=== PATIENT | female | born 1945 | race Caucasian/White ===

== ENCOUNTER 2024-11-16 17:39 | Inpatient (IN) | payer MEDICARE, SELFPAY ==
--- NOTE | ~2024-11-16 | CT_ITS ---
EXAMINATION: CT abdomen pelvis w con DATE: 11/16/2024 20:24 INDICATION: diffuse abd pain, constipation TECHNIQUE: Computed tomography (CT) of the abdomen and pelvis was performed with 100 mL Omnipaque-350 intravenous contrast. Automated exposure control and iterative reconstruction technique were employe d. The dose-length product was 394.29 mGy-cm. COMPARISON: None. FINDINGS: Lower thorax: Mild dependent scar/atelectasis. Coronary artery calcifications. Liver: Normal. Biliary/Gallbladder: Gallbladder is absent. Mildly prominent intrahepatic bile ducts. Normal common b ile duct. Pancreas: Multiple subcentimeter cysts in the pancreatic head and body, in addition to multiple small fat density areas which may represent small lipomas or fatty invagination. Spleen: Normal. Adrenals:Hyperdense 3.7 cm right adrenal mass. Additional smaller subcentimeter bilateral adrenal nod ules are also noted. Kidneys: 1.0 cm indeterminate density left upper pole lesion. Simple left lower pole cyst. Multiple a dditional subcentimeter hypodensities bilaterally, too small to characterize but most likely represen t cysts.. GI tract: No small or large bowel dilation. Bowel wall edema involving the distal portion of the desc ending colon and the entire sigmoid colon. Appendix not confidently visualized. Diverticulosis withou t diverticulitis. Mesentery/Peritoneum: No ascites, mass, or free air. Retroperitoneum: No mass. Atherosclerotic calcifications of intra-abdominal arterial vessels. Pelvis: Distended urinary bladder without wall thickening. Absent uterus. Bilateral ovaries not confi dently identified. Soft Tissues: Small fat-containing uncomplicated umbilical hernia. Bones: Mild compression deformity at T11. IMPRESSION: Mild intrahepatic bile duct dilation, presumably related to cholecystectomy. No common bile duct dila tion or obstructing stone or mass. Correlate with biliary labs. 3.7 cm right adrenal mass, with multiple additional smaller bilateral adrenal nodules. 1 cm indetermi sneha density left upper pole renal lesion. Multiple subcentimeter pancreatic cysts. Recommend compari son to outside studies if available to evaluate all of these lesions for stability. Otherwise, recomm end nonemergent but timely multiphasic CT or MR without and with contrast. Distal descending colonic and sigmoid colon wall edema as can be seen with infectious, inflammatory, or ischemic colitis. Mild compression deformity at T11, presumed chronic unless accompanied by acute pain/tenderness. Reviewed, dictated and finalized at location K. IMPRESSION: Mild intrahepatic bile duct dilation, presumably related to cholecystectomy. No common bile duct dilation or obstructing stone or mass. Correlate with biliary labs. 3.7 cm right adrenal mass, with multiple additional smaller bilateral adrenal n odules. 1 cm indeterminate density left upper pole renal lesion. Multiple subce ntimeter pancreatic cysts. Recommend comparison to outside studies if available to evaluate all of these lesions for stability. Otherwise, recommend nonemerge nt but timely multiphasic CT or MR without and with contrast. Distal descending colonic and sigmoid colon wall edema as can be seen with infe ctious, inflammatory, or ischemic colitis. Mild compression deformity at T11, presumed chronic unless accompanied by acute pain/tenderness.
[2024-11-16 17:47] VITALS: BP 150/115; PULSE 98; RESP 22; TEMP 36.6; O2SAT 100
[2024-11-16 18:20] VITALS: BP 160/72; PULSE 79; RESP 15; O2SAT 100
[2024-11-16 18:20] LABS: Glucose Point of Care 267 mg/dl (65-105)
[2024-11-16] MEDS: ONDANSETRON INJ 4 MG/2 ML VIAL IV PUSH ×2 (18:26→23:00)
[2024-11-16 18:30] LABS: Basophils Percent Auto 0.1 % (0.2-1.2); Hematocrit 41.7 % (37.0-47.0); Hemoglobin 13.7 g/dL (12.0-15.0); Immature Granulocyte Absolute 0.05 K/mm3 (0.00-0.031); Immature Granulocyte Percent A 0.3 % (0-0.5); Lymphocytes Absolute Auto 1.37 K/mm3 (0.9-3.2); Lymphocytes Percent Auto 9.1 % (18.3-44.2); Mean Corpuscular HGB Conc 32.9 g/dl (32-36); Mean Corpuscular Hemoglobin 30.2 pg (26-34); Mean Corpuscular Volume 91.9 fl (80-100); Mean Platelet Volume 9.4 fl (7.4-10.4); Monocytes Absolute Auto 0.2 K/mm3 (0.1-0.6); Monocytes Percent Auto 1.6 % (2.6-8.5); Neutrophils Absolute Auto 13.4 K/mm3 (1.3-6.7); Neutrophils Percent Auto 88.9 % (45.5-73.1); Platelet Count Result 364 k/mm3 (150-375); Red Blood Count 4.54 M/mm3 (4.2-5.4); Red Cell Distribution Width 12.7 % (11.5-14.5); White Blood Count 15.1 K/mm3 (4.5-10.0)
[2024-11-16 18:39] LABS: Lactic Acid Reflex 3.1 mmol/L (0.7-2.0)
[2024-11-16 18:40] LABS: Alanine Aminotransferase 28 U/L (6-35); Albumin Level 4.9 g/dL (3.5-5.1); Alkaline Phosphatase 75 U/L (38-126); Anion Gap 13 mmol/L (4-12); Aspartate Amino Transferase 29 U/L (14-36); Bilirubin,Total 0.5 mg/dL (0.2-1.3); Blood Urea Nitrogen 19 mg/dL (7-17); Calcium 10.7 mg/dL (8.4-10.2); Carbon Dioxide 21 mmol/L (22-30); Chloride 102 mmol/L (98-107); Estimated CRCL calculation 34 ml/min; Estimated Glomerular Filt Rate 51; Glucose 275 mg/dL (65-110); Lipase 160 U/L (23-300); Potassium 4.3 mmol/L (3.4-5.0); Sodium 136 mmol/L (137-145); Total Protein 7.5 g/dL (6.3-8.2)
[2024-11-16 18:46] VITALS: BP 149/67; PULSE 85; RESP 16; O2SAT 97
[2024-11-16 19:01] VITALS: BP 163/66; PULSE 80; RESP 15
[2024-11-16 19:16] VITALS: BP 121/109; PULSE 74; RESP 24; O2SAT 97
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
[2024-11-16] MEDS: FAMOTIDINE 20 MG/2 ML VIAL IV PUSH (20:26)
[2024-11-16] MEDS: MORPHINE SULFATE (*CRX) 2 MG/ML INJ IV PUSH (20:26)
[2024-11-16] MEDS: METOCLOPRAMIDE HCL INJ 10 MG/2 ML VIAL IV PUSH (20:26)
[2024-11-16 20:28] LABS: Reflex Lactic Acid Yes or No Add Lactic
[2024-11-16] MEDS: LACTATED RINGERS 1,000 ML 999 ML IV CONT ×2 (20:33→21:34)
--- NOTE | 2024-11-16 20:40 | ED.NAVMDI ---
HPI - Nausea/Vomiting/Diarrhea General Chief complaint: Nausea/Vomiting/Diarrhea <Eva Adams PA-C - Last Filed: 11/16/24 22:23> Stated complaint: n/v <Eva Adams PA-C - Last Filed: 11/16/24 22:23> Time Seen by Provider: 11/16/24 19:45 <Eva Adams PA-C - Last Filed: 11/16/24 22:23> History of Present Illness HPI Narrative: 79-year-old female with a history of hypertension, hyperlipidemia, type 2 diabetes, seizure disorder presents to the emergency department with at bedside for abdominal pain and nausea and vomiting that started this morning. Patient states she has been constipated for several days. She has been taking Dulcolax and had a bowel movement this morning. She states the bowel movement was firm. Shortly after the bowel movement she began developing diffuse abdominal pain, nausea and has had 3 episodes of vomiting. She states she did have a small amount of blood on the toilet paper when she wipes but does have a history of hemorrhoids and states this is not uncommon for her. She did not have any blood in the toilet denies any melena, hematemesis or coffee-ground emesis. She endorses a prior history of cholecystectomy and hysterectomy. She is endorsing decreased flatulence. Denies history of bowel obstruction. Denies fever, dysuria or hematuria. <Eva Adams PA-C - Last Filed: 11/16/24 22:23> Related Data Home medications: Home Medications ?Medication ?Instructions ?Recorded ?Confirmed ?Last Taken ?Type amlodipine 5 mg tablet 5 mg PO DAILY 11/16/24 11/17/24 Unknown History fluoxetine 20 mg capsule 20 mg PO QPM 11/16/24 11/17/24 Unknown History glimepiride 4 mg tablet 4 mg PO QAM 11/16/24 11/17/24 Unknown History lamotrigine 25 mg tablet 50 mg PO Q12H 11/16/24 11/17/24 Unknown History levetiracetam 500 mg tablet 1,000 mg PO Q12H 11/16/24 11/17/24 11/16/24 08:06 History lisinopril 20 mg tablet 20 mg PO DAILY 11/16/24 11/17/24 Unknown History rosuvastatin 10 mg tablet 10 mg PO HS 11/16/24 11/17/24 Unknown History trazodone 50 mg tablet 50 mg PO HS 11/16/24 11/17/24 Unknown History semaglutide 0.25 mg or 0.5 mg (2 0.5 mg subcut WEEKLY 11/17/24 11/17/24 11/10/24 History mg/3 mL) subcutaneous pen injector (Ozempic) <Eva Adams PA-C - Last Filed: 11/16/24 22:23> Allergies/Adverse reactions: Allergies Allergy/AdvReac Type Severity Reaction Status Date / Time No Known Allergies Allergy Verified 11/16/24 19:07 <CHANA Martin Last Filed: 11/16/24 22:23> Review of Systems Review of Systems: All systems reviewed & are unremarkable except as noted in HPI and below <Eva Adams PA-C - Last Filed: 11/16/24 22:23> [facility] Past Medical History Medical History: Medical History (Updated 11/17/24 @ 04:17 by Radha Lemus DO) Absence seizure disorder Obstructive sleep apnea Umbilical hernia 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 Compression fracture of T11 vertebra Depression Hyperlipidemia Essential hypertension Type 2 diabetes mellitus <Eva Adams PA-C - Last Filed: 11/16/24 22:23> Surgical History Surgical History: Surgical History (Updated 11/17/24 @ 04:01 by Radha Lemus DO) History of partial thyroidectomy Due to goiter Status post cataract extraction of both eyes with insertion of intraocular lens History of total abdominal hysterectomy and bilateral salpingo-oophorectomy Hx of cholecystectomy <CHANA Martin Last Filed: 11/16/24 22:23> Family History Family History: Family History (Updated 11/17/24 @ 04:02 by Radha Lemus DO) Daughter , Age 48 History of blood clots <Eva Adams PA-C - Last Filed: 11/16/24 22:23> Social History Social History: Social History (Updated 11/17/24 @ 04:04 by Radha Lemus DO) Social History: Patient is . She lives alone in her own home. She is independent in activities of daily living. She is a lifelong nonsmoker and does not drink alcohol or use illicit substances. 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 She raised 3 children. She has 1 son who lives out of state but is currently at the bedside. And she has 1 daughter who lives locally. Code status: Full code (however she would not want to be on long-term ventilation or feeding tube) Healthcare power of deputy attorney general: Liliana (daughter) Smoking status: Never smoker Alcohol intake: never Substance use: never Substance use type: does not use Do You Feel Safe in your Home?: Yes Lack of Transportation: No Lack of Food: Never True Current Housing: I Have Housing Concerned About Future Housing: No Difficulty Paying Gas/Electric Bills: No Difficulty Paying for Meds: No Currently Unemployed: No Education: High School Diploma/GED Difficulty w/ Childcare or Family Care: No Spiritual care concerns: No <Eva Adams PA-C - Last Filed: 11/16/24 22:23> Exam Narrative: GENERAL: Ill appearing, actively dry heaving on exam HEAD: Normocephalic, atraumatic. EYES: EOMI. ENT: Nares clear, no rhinorrhea or epistaxis. Mucous membranes dry NECK: Supple. CHEST: Clear to auscultation. No respiratory distress. HEART: Regular rate and rhythm. No murmur heard. Normal peripheral pulses. ABDOMEN: Quiet bowel sounds. Abdomen soft with diffuse tenderness. No rebound or rigidity. No CVA tenderness. Rectal exam chaperoned by fany Hernandez: no external hemorrhoids, no anal fissures, no melena or hematochezia, negative Hemoccult EXTREMITIES: Normal range of motion. No edema. SKIN: Warm, dry, no rash. NEURO: No focal deficits. Alert and oriented x3 <Eva Adams PA-C - Last Filed: 11/16/24 22:23> Course VIRTUALIZATION ENGINEER/PA Physician Supervision For this patient encounter, I reviewed the VIRTUALIZATION ENGINEER or PA documentation, treatment plan, and medical decision making and had [id number] time with this patient. I performed all aspects of the MDM as documented. <Prakash Andino MD - Last Filed: 11/17/24 05:33> Vital Signs Vital signs: Vital Signs Temperature 97.8 F 11/16/24 17:47 Pulse Rate 98 11/16/24 17:47 Respiratory Rate 22 H 11/16/24 17:47 Blood Pressure 150/115 H 11/16/24 17:47 Pulse Oximetry 100 11/16/24 17:47 Oxygen Delivery Room Air 11/16/24 17:47 Temperature 97.2 F L 11/17/24 04:44 Pulse Rate 75 11/17/24 04:44 Respiratory Rate 20 11/17/24 04:44 Blood Pressure 124/51 L 11/17/24 04:44 Pulse Oximetry 95 11/17/24 04:44 Oxygen Delivery Room Air 11/16/24 23:16 <Eva Adams PA-C - Last Filed: 11/16/24 22:23> Vital Signs Temperature 97.8 F 11/16/24 17:47 Pulse Rate 98 11/16/24 17:47 Respiratory Rate 22 H 11/16/24 17:47 Blood Pressure 150/115 H 11/16/24 17:47 Pulse Oximetry 100 11/16/24 17:47 Oxygen Delivery Room Air 11/16/24 17:47 Temperature 97.2 F L 11/17/24 04:44 Pulse Rate 75 11/17/24 04:44 Respiratory Rate 20 11/17/24 04:44 Blood Pressure 124/51 L 11/17/24 04:44 Pulse Oximetry 95 11/17/24 04:44 Oxygen Delivery Room Air 11/16/24 23:16 <Prakash Andino MD - Last Filed: 11/17/24 05:33> MDM - Nausea/Vomiting/Diarrhea MDM Narrative Medical decision making narrative: 79-year-old female presents to emergency department for abdominal pain, nausea and vomiting that started today. See HPI for further history. Vitals with elevated blood pressure, otherwise unremarkable. Patient is afebrile. She appears uncomfortable on the exam bed, ill-appearing is dry heaving. Exam is notable for the above. Lab work with leukocytosis of 15.1. Patient has signs of dehydration on chemistries with a bicarb of 21, anion gap of 13, BUN 19, creatinine 1.04 and hypercalcemia 10.7. Fluids have been provided. She is hyperglycemic at 267, beta hydroxybutyrate minimally elevated at 1.06. Very low suspicion for DKA, suspect lab work again is most consistent with dehydration. Urinalysis with 6-10 white blood cells 1+ leuk esterase, 2+ ketones. Denies signs or symptoms of urinary tract infection. Lipase within normal limits. CT abd/pelvis shows IMPRESSION: Mild intrahepatic bile duct dilation, presumably related to cholecystectomy. No common bile duct dilation or obstructing stone or mass. Correlate with biliary labs. 3.7 cm right adrenal mass, with multiple additional smaller bilateral adrenal nodules. 1 cm indeterminate density left upper pole renal lesion. Multiple subcentimeter pancreatic cysts. Recommend comparison to outside studies if available to evaluate all of these lesions for stability. Otherwise, recommend nonemergent but timely multiphasic CT or MR without and with contrast. Distal descending colonic and sigmoid colon wall edema as can be seen with infectious, inflammatory, or ischemic colitis. Mild compression deformity at T11, presumed chronic unless accompanied by acute pain/tenderness Labs and imaging discussed with the patient. Patient has normal biliary labs in no significant tenderness to the right upper quadrant on reexamination. She does have an elevated lactic acid at 3.1 was given a L of fluids. Lactic rechecked and is up trending to 4. A 2nd L of fluids are ongoing. Discussed uptrending lactic acid and findings of colitis with concern for ischemic colitis with Dr. Garay. Advises continue fluids, make patient NPO, trend lactic and start Zosyn. Advises against CTA at this time. Patient re-evaluated and looks much improved and is resting comfortably in exam bed. Discussed with hospitalist, Dr. Lemus, who agrees to admission. Advises maintenance fluids at 125 cc/hour and p.r.n. pain meds. Patient admitted to Med/surg. <Eva Adams PA-C - Last Filed: 11/16/24 22:23> Lab Data Result diagrams: 11/17/24 04:36 11/17/24 04:36 <Eva Adams PA-C - Last Filed: 11/16/24 22:23> Labs: Lab Results 11/16/24 11/16/24 11/16/24 Range/Units 18:17 18:22 18:25 WBC 15.1 H (4.5-10.0) K/mm3 RBC 4.54 (4.2-5.4) M/mm3 Hgb 13.7 (12.0-15.0) g/dL Hct 41.7 (37.0-47.0) % MCV 91.9 (80-100) fl MCH 30.2 (26-34) pg MCHC 32.9 (32-36) g/dl RDW 12.7 (11.5-14.5) % Plt Count 364 (150-375) k/mm3 MPV 9.4 (7.4-10.4) fl Immature Gran % (Auto) 0.3 (0-0.5) % Neut % (Auto) 88.9 H (45.5-73.1) % Lymph % (Auto) 9.1 L (18.3-44.2) % Forrest % (Auto) 1.6 L (2.6-8.5) % Eos % (Auto) 0.0 (0-4.4) % Baso % (Auto) 0.1 L (0.2-1.2) % Lymph # (Auto) 1.37 (0.9-3.2) K/mm3 Forrest # (Auto) 0.2 (0.1-0.6) K/mm3 Eos # (Auto) 0.0 (0-0.3) K/mm3 Baso # (Auto) 0.0 (0.0-0.1) K/mm3 Abs Immat Gran (auto) 0.05 H (0.00-0.031) K/mm3 Absolute Neuts (auto) 13.4 H (1.3-6.7) K/mm3 Absolute Nucleated RBC 0.000 (0.0-0.012) K/mm3 Nucleated RBC % 0.0 (0.0-0.2) % PT 13.8 (11.1-14.7) Seconds INR 1.0 APTT 25.8 (22.3-36.8) Seconds Sodium 136 L (137-145) mmol/L Potassium 4.3 (3.4-5.0) mmol/L Chloride 102 (98-107) mmol/L Carbon Dioxide 21 L (22-30) mmol/L Anion Gap 13 H (4-12) mmol/L BUN 19 H (7-17) mg/dL Creatinine 1.04 H (0.7-1.0) mg/dL Estim Creat Clear Calc 34 ml/min Estimated GFR 51 L (59 - ) Glucose 275 H (65-110) mg/dL POC Capillary Glucose 267 H (65-105) mg/dl Lactic Acid 3.1 H (0.7-2.0) mmol/L Calcium 10.7 H (8.4-10.2) mg/dL Total Bilirubin 0.5 (0.2-1.3) mg/dL AST 29 (14-36) U/L ALT 28 (6-35) U/L Alkaline Phosphatase 75 (38-126) U/L Total Protein 7.5 (6.3-8.2) g/dL Albumin 4.9 (3.5-5.1) g/dL Lipase 160 (23-300) U/L Beta-Hydroxybutyrate/Acetoacetate 1.06 H (0.02-0.27) mmol/L Urine Color (Yellow) Urine Appearance (Clear) Urine pH (5.0-9.0) Ur Specific Marcell (1.001-1.035) Urine Protein (Negative) mg/dL Urine Glucose (UA) (Negative) mg/dL Urine Ketones (Negative) mg/dL Ur Blood (Man) (Negative) Urine Nitrate (Negative) Urine Bilirubin (Negative) Urine Urobilinogen (<2.0) mg/dL Leukocyte Esterase Rfl (Negative) SANGEETA/UL Urine RBC (0-2) /hpf Urine WBC (0-3) /hpf Ur Squamous Epith Cells (Few) /hpf Urine Bacteria /hpf Urine Casts Influenza A (RT-PCR) (Negative) Influenza B (RT-PCR) (Negative) RSV (RT-PCR) (Negative) SARS-CoV-2 RNA (RT-PCR) (Negative) 11/16/24 11/16/24 Range/Units 21:11 21:16 WBC (4.5-10.0) K/mm3 RBC (4.2-5.4) M/mm3 Hgb (12.0-15.0) g/dL Hct (37.0-47.0) % MCV (80-100) fl MCH (26-34) pg MCHC (32-36) g/dl RDW (11.5-14.5) % Plt Count (150-375) k/mm3 MPV (7.4-10.4) fl Immature Gran % (Auto) (0-0.5) % Neut % (Auto) (45.5-73.1) % Lymph % (Auto) (18.3-44.2) % Forrest % (Auto) (2.6-8.5) % Eos % (Auto) (0-4.4) % Baso % (Auto) (0.2-1.2) % Lymph # (Auto) (0.9-3.2) K/mm3 Forrest # (Auto) (0.1-0.6) K/mm3 Eos # (Auto) (0-0.3) K/mm3 Baso # (Auto) (0.0-0.1) K/mm3 Abs Immat Gran (auto) (0.00-0.031) K/mm3 Absolute Neuts (auto) (1.3-6.7) K/mm3 Absolute Nucleated RBC (0.0-0.012) K/mm3 Nucleated RBC % (0.0-0.2) % PT (11.1-14.7) Seconds INR APTT (22.3-36.8) Seconds Sodium (137-145) mmol/L Potassium (3.4-5.0) mmol/L Chloride (98-107) mmol/L Carbon Dioxide (22-30) mmol/L Anion Gap (4-12) mmol/L BUN (7-17) mg/dL Creatinine (0.7-1.0) mg/dL Estim Creat Clear Calc ml/min Estimated GFR (59 - ) Glucose (65-110) mg/dL POC Capillary Glucose (65-105) mg/dl Lactic Acid 4.0 H (0.7-2.0) mmol/L Calcium (8.4-10.2) mg/dL Total Bilirubin (0.2-1.3) mg/dL AST (14-36) U/L ALT (6-35) U/L Alkaline Phosphatase (38-126) U/L Total Protein (6.3-8.2) g/dL Albumin (3.5-5.1) g/dL Lipase (23-300) U/L Beta-Hydroxybutyrate/Acetoacetate (0.02-0.27) mmol/L Urine Color Yellow (Yellow) Urine Appearance Clear (Clear) Urine pH 8.5 (5.0-9.0) Ur Specific Marcell 1.035 (1.001-1.035) Urine Protein Negative (Negative) mg/dL Urine Glucose (UA) Trace H (Negative) mg/dL Urine Ketones 2+ H (Negative) mg/dL Ur Blood (Man) Negative (Negative) Urine Nitrate Negative (Negative) Urine Bilirubin Negative (Negative) Urine Urobilinogen 0.2 (<2.0) mg/dL Leukocyte Esterase Rfl 1+ H (Negative) SANGEETA/UL Urine RBC 0-2 (0-2) /hpf Urine WBC 6-10 H (0-3) /hpf Ur Squamous Epith Cells None seen (Few) /hpf Urine Bacteria None seen /hpf Urine Casts 0-2 Influenza A (RT-PCR) Negative (Negative) Influenza B (RT-PCR) Negative (Negative) RSV (RT-PCR) Negative (Negative) SARS-CoV-2 RNA (RT-PCR) Negative (Negative) <Eva Adams PA-C - Last Filed: 11/16/24 22:23> Lab Results 11/16/24 11/16/24 11/16/24 Range/Units 18:17 18:22 18:25 WBC 15.1 H (4.5-10.0) K/mm3 RBC 4.54 (4.2-5.4) M/mm3 Hgb 13.7 (12.0-15.0) g/dL Hct 41.7 (37.0-47.0) % MCV 91.9 (80-100) fl MCH 30.2 (26-34) pg MCHC 32.9 (32-36) g/dl RDW 12.7 (11.5-14.5) % Plt Count 364 (150-375) k/mm3 MPV 9.4 (7.4-10.4) fl Immature Gran % (Auto) 0.3 (0-0.5) % Neut % (Auto) 88.9 H (45.5-73.1) % Lymph % (Auto) 9.1 L (18.3-44.2) % Forrest % (Auto) 1.6 L (2.6-8.5) % Eos % (Auto) 0.0 (0-4.4) % Baso % (Auto) 0.1 L (0.2-1.2) % Lymph # (Auto) 1.37 (0.9-3.2) K/mm3 Forrest # (Auto) 0.2 (0.1-0.6) K/mm3 Eos # (Auto) 0.0 (0-0.3) K/mm3 Baso # (Auto) 0.0 (0.0-0.1) K/mm3 Abs Immat Gran (auto) 0.05 H (0.00-0.031) K/mm3 Absolute Neuts (auto) 13.4 H (1.3-6.7) K/mm3 Absolute Nucleated RBC 0.000 (0.0-0.012) K/mm3 Nucleated RBC % 0.0 (0.0-0.2) % PT 13.8 (11.1-14.7) Seconds INR 1.0 APTT 25.8 (22.3-36.8) Seconds Sodium 136 L (137-145) mmol/L Potassium 4.3 (3.4-5.0) mmol/L Chloride 102 (98-107) mmol/L Carbon Dioxide 21 L (22-30) mmol/L Anion Gap 13 H (4-12) mmol/L BUN 19 H (7-17) mg/dL Creatinine 1.04 H (0.7-1.0) mg/dL Estim Creat Clear Calc 34 ml/min Estimated GFR 51 L (59 - ) Glucose 275 H (65-110) mg/dL POC Capillary Glucose 267 H (65-105) mg/dl Lactic Acid 3.1 H (0.7-2.0) mmol/L Calcium 10.7 H (8.4-10.2) mg/dL Total Bilirubin 0.5 (0.2-1.3) mg/dL AST 29 (14-36) U/L ALT 28 (6-35) U/L Alkaline Phosphatase 75 (38-126) U/L Total Protein 7.5 (6.3-8.2) g/dL Albumin 4.9 (3.5-5.1) g/dL Lipase 160 (23-300) U/L Beta-Hydroxybutyrate/Acetoacetate 1.06 H (0.02-0.27) mmol/L Urine Color (Yellow) Urine Appearance (Clear) Urine pH (5.0-9.0) Ur Specific Marcell (1.001-1.035) Urine Protein (Negative) mg/dL Urine Glucose (UA) (Negative) mg/dL Urine Ketones (Negative) mg/dL Ur Blood (Man) (Negative) Urine Nitrate (Negative) Urine Bilirubin (Negative) Urine Urobilinogen (<2.0) mg/dL Leukocyte Esterase Rfl (Negative) SANGEETA/UL Urine RBC (0-2) /hpf Urine WBC (0-3) /hpf Ur Squamous Epith Cells (Few) /hpf Urine Bacteria /hpf Urine Casts Influenza A (RT-PCR) (Negative) Influenza B (RT-PCR) (Negative) RSV (RT-PCR) (Negative) SARS-CoV-2 RNA (RT-PCR) (Negative) 11/16/24 11/16/24 Range/Units 21:11 21:16 WBC (4.5-10.0) K/mm3 RBC (4.2-5.4) M/mm3 Hgb (12.0-15.0) g/dL Hct (37.0-47.0) % MCV (80-100) fl MCH (26-34) pg MCHC (32-36) g/dl RDW (11.5-14.5) % Plt Count (150-375) k/mm3 MPV (7.4-10.4) fl Immature Gran % (Auto) (0-0.5) % Neut % (Auto) (45.5-73.1) % Lymph % (Auto) (18.3-44.2) % Forrest % (Auto) (2.6-8.5) % Eos % (Auto) (0-4.4) % Baso % (Auto) (0.2-1.2) % Lymph # (Auto) (0.9-3.2) K/mm3 Forrest # (Auto) (0.1-0.6) K/mm3 Eos # (Auto) (0-0.3) K/mm3 Baso # (Auto) (0.0-0.1) K/mm3 Abs Immat Gran (auto) (0.00-0.031) K/mm3 Absolute Neuts (auto) (1.3-6.7) K/mm3 Absolute Nucleated RBC (0.0-0.012) K/mm3 Nucleated RBC % (0.0-0.2) % PT (11.1-14.7) Seconds INR APTT (22.3-36.8) Seconds Sodium (137-145) mmol/L Potassium (3.4-5.0) mmol/L Chloride (98-107) mmol/L Carbon Dioxide (22-30) mmol/L Anion Gap (4-12) mmol/L BUN (7-17) mg/dL Creatinine (0.7-1.0) mg/dL Estim Creat Clear Calc ml/min Estimated GFR (59 - ) Glucose (65-110) mg/dL POC Capillary Glucose (65-105) mg/dl Lactic Acid 4.0 H (0.7-2.0) mmol/L Calcium (8.4-10.2) mg/dL Total Bilirubin (0.2-1.3) mg/dL AST (14-36) U/L ALT (6-35) U/L Alkaline Phosphatase (38-126) U/L Total Protein (6.3-8.2) g/dL Albumin (3.5-5.1) g/dL Lipase (23-300) U/L Beta-Hydroxybutyrate/Acetoacetate (0.02-0.27) mmol/L Urine Color Yellow (Yellow) Urine Appearance Clear (Clear) Urine pH 8.5 (5.0-9.0) Ur Specific Marcell 1.035 (1.001-1.035) Urine Protein Negative (Negative) mg/dL Urine Glucose (UA) Trace H (Negative) mg/dL Urine Ketones 2+ H (Negative) mg/dL Ur Blood (Man) Negative (Negative) Urine Nitrate Negative (Negative) Urine Bilirubin Negative (Negative) Urine Urobilinogen 0.2 (<2.0) mg/dL Leukocyte Esterase Rfl 1+ H (Negative) SANGEETA/UL Urine RBC 0-2 (0-2) /hpf Urine WBC 6-10 H (0-3) /hpf Ur Squamous Epith Cells None seen (Few) /hpf Urine Bacteria None seen /hpf Urine Casts 0-2 Influenza A (RT-PCR) Negative (Negative) Influenza B (RT-PCR) Negative (Negative) RSV (RT-PCR) Negative (Negative) SARS-CoV-2 RNA (RT-PCR) Negative (Negative) <Prakash Andino MD - Last Filed: 11/17/24 05:33> Discharge Plan Discharge Clinical Impression: Colitis, Dehydration, Elevated lactic acid level <Eva Adams PA-C - Last Filed: 11/16/24 22:23> Patient Disposition: Still a Patient <Eva Adams PA-C - Last Filed: 11/16/24 22:23> Condition: Stable <Eva Adams PA-C - Last Filed: 11/16/24 22:23>
[2024-11-16 20:47] LABS: Prothrombin Time 13.8 Seconds (11.1-14.7)
[2024-11-16 20:48] LABS: Partial Thromboplastin Time 25.8 Seconds (22.3-36.8)
[2024-11-16 21:20] LABS: Add Urine Microscopic? YES; Appearance Urine Clear (Clear); Bacteria Urine None Seen /hpf; Bilirubin Urine Negative (Negative); Blood Urine Negative (Negative); Color Urine Yellow (Yellow); Glucose Urine UA Trace mg/dL (Negative); Ketones Urine 2+ mg/dL (Negative); Leukocyte Esterase Ur 1+ LEU/UL (Negative); Nitrate Urine Negative (Negative); Non Pathogenic Casts 0-2; Protein Urine Negative (Negative); RBC Urine 0-2 /hpf (0-2); Specific Grav Ur 1.035 (1.001-1.035); Squamous Epithelial Cell Urine None Seen /hpf (Few); Urobilinogen Urine 0.2 mg/dL (<2.0); pH Urine 8.5 (5.0-9.0)
[2024-11-16 21:57] LABS: Influenza A QL RT-PCR Negative (Negative); Influenza B QL RT-PCR Negative (Negative); RSV RNA, RT-PCR Negative (Negative); SARS-CoV-2 RNA PCR Negative (Negative)
[2024-11-16 22:05] LABS: Beta-Hydroxybutyrate/Acetoacetate 1.06 mmol/L (0.02-0.27)
--- NOTE | 2024-11-16 22:31 | P.HP_ITS ---
H&P: HPI History of Present Illness Date/Time: 11/16/24 22:31 Chief Complaint: Abdominal pain Narrative: 79-year-old female with a past medical history of seizure disorder, essential hypertension, irritable bowel syndrome, type 2 diabetes, depression and prior cholecystectomy and hysterectomy who presented to the ER with nausea vomiting and abdominal pain. The patient reports that she has chronic constipation and usually only has a bowel movement every 3 days. She felt uncomfortable enough that she decided to take a Dulcolax tablet this morning. After taking the Dulcolax tablets she had an initial hard bowel movement followed by 2 softer/loose bowel movements after she had the bowel movement she then started having nausea and vomiting. She reports that she had had a banana not muffin just prior to onset of symptoms. When she had emesis it was brown but non bloody. Patient reports the pain is more in the lower abdomen and mild. Her biggest complaint at the time of my evaluation is persistent nausea. She was afebrile in the ER but was complaining of chills and episodes of diaphoresis that occurred when she is having abdominal discomfort and nausea. She denies any recent ill contacts. Her son ate the same food that she did and has not been ill. She has not had any recent travel. She denies history of inflammatory bowel disease. She has been having normal urine output. She does have stress urinary incontinence but this is unchanged from baseline. She denies any dysuria or hematuria. She has not had any hematochezia or melena. She has noticed a small amount of blood on the toilet paper after wiping but this is not unusual given her history of hemorrhoids. Patient gave permission for me to discuss her medical care with her son, Jayro, who is at bedside. Source of information comes from the patient who is a relatively good historian, ER physician report and external medications report from pharmacy. The patient has never been evaluated at this facility previously. Review of Systems 2 Review of Systems: 12 systems were reviewed with pertinent positives and negatives per HPI. Except as documented in the HPI, all other systems were reviewed and are negative. She has not had a seizure in many years. [facility] Past Medical History Medical History (Updated 11/17/24 @ 04:17 by Radha Lemus DO) Absence seizure disorder Obstructive sleep apnea Umbilical hernia 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 Compression fracture of T11 vertebra Depression Hyperlipidemia Essential hypertension Type 2 diabetes mellitus Surgical History Surgical History (Updated 11/17/24 @ 04:01 by Radha Lemus DO) History of partial thyroidectomy Due to goiter Status post cataract extraction of both eyes with insertion of intraocular lens History of total abdominal hysterectomy and bilateral salpingo-oophorectomy Hx of cholecystectomy Family History Family History (Updated 11/17/24 @ 04:02 by Radha Lemus DO) Daughter , Age 48 History of blood clots Social History Social History (Updated 11/17/24 @ 04:04 by Radha Lemus DO) Social History: Patient is . She lives alone in her own home. She is independent in activities of daily living. She is a lifelong nonsmoker and does not drink alcohol or use illicit substances. 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 She raised 3 children. She has 1 son who lives out of state but is currently at the bedside. And she has 1 daughter who lives locally. Code status: Full code (however she would not want to be on long-term ventilation or feeding tube) Healthcare power of civil rights attorney: Liliana (daughter) Smoking status: Never smoker Alcohol intake: never Substance use: never Substance use type: does not use Do You Feel Safe in your Home?: Yes Lack of Transportation: No Lack of Food: Never True Current Housing: I Have Housing Concerned About Future Housing: No Difficulty Paying Gas/Electric Bills: No Difficulty Paying for Meds: No Currently Unemployed: No Education: High School Diploma/GED Difficulty w/ Childcare or Family Care: No Spiritual care concerns: No Meds Home Medications and Allergies Home Medications ?Medication ?Instructions ?Recorded ?Confirmed ?Type amlodipine 5 mg tablet 5 mg PO DAILY 11/16/24 11/17/24 History fluoxetine 20 mg capsule 20 mg PO QPM 11/16/24 11/17/24 History glimepiride 4 mg tablet 4 mg PO QAM 11/16/24 11/17/24 History lamotrigine 25 mg tablet 50 mg PO Q12H 11/16/24 11/17/24 History levetiracetam 500 mg tablet 1,000 mg PO Q12H 11/16/24 11/17/24 History lisinopril 20 mg tablet 20 mg PO DAILY 11/16/24 11/17/24 History rosuvastatin 10 mg tablet 10 mg PO HS 11/16/24 11/17/24 History trazodone 50 mg tablet 50 mg PO HS 11/16/24 11/17/24 History semaglutide 0.25 mg or 0.5 mg (2 0.5 mg subcut WEEKLY 11/17/24 11/17/24 History mg/3 mL) subcutaneous pen injector (Ozempic) Allergies Allergy/AdvReac Type Severity Reaction Status Date / Time No Known Allergies Allergy Verified 11/16/24 19:07 Vital Signs Vital Signs - 24 hr 11/16/24 17:47 11/16/24 18:20 11/16/24 18:46 Temperature 97.8 F Pulse Rate 98 79 85 Respiratory Rate 22 H 15 16 Blood Pressure 150/115 H 160/72 H 149/67 H Pulse Oximetry 100 100 97 Oxygen Delivery Room Air 11/16/24 19:01 11/16/24 19:16 Temperature Pulse Rate 80 74 Respiratory Rate 15 24 H Blood Pressure 163/66 H 121/109 H Pulse Oximetry 97 Oxygen Delivery Exam 2 Narrative: Weight 72.5 kg BMI 26.6 Const: Other: Well-developed, well-nourished, mildly ill-appearing HENMT: Other: Mucous membranes are tacky, no oral pharyngeal erythema, good dentition Eyes: Other: Pupils are equal and reactive, bilateral lens implants noted, no conjunctival pallor, no scleral icterus Neck: Other: No lymphadenopathy, no thyromegaly Resp: Other: Clear to auscultation bilaterally, no increased work of breathing Cardio: Other: Regular rate, regular rhythm, no murmur, 2+ bilateral radial pedal pulses, no JVD GI: Other: Soft, nontender, nondistended, positive bowel sounds Skin: Other: Generalized pallor, non jaundice Neuro: Other: Alert oriented x4, speech is clear, no facial asymmetry, no localizing neurologic deficits noted Extrem: Other: No clubbing, no cyanosis, 1+ pitting edema bilateral lower extremities Psych: Other: Anxious, pleasant, cooperative, appropriate judgment and insight H&P: Results Labs Labs: Laboratory Tests 11/16/24 18:22 11/16/24 18:22 11/16/24 11/16/24 11/16/24 18:17 18:22 18:25 WBC 15.1 H RBC 4.54 Hgb 13.7 Hct 41.7 MCV 91.9 MCH 30.2 MCHC 32.9 RDW 12.7 Plt Count 364 MPV 9.4 Immature Gran % (Auto) 0.3 Neut % (Auto) 88.9 H Lymph % (Auto) 9.1 L Bartow % (Auto) 1.6 L Eos % (Auto) 0.0 Baso % (Auto) 0.1 L Lymph # (Auto) 1.37 Bartow # (Auto) 0.2 Eos # (Auto) 0.0 Baso # (Auto) 0.0 Abs Immat Gran (auto) 0.05 H Absolute Neuts (auto) 13.4 H Absolute Nucleated RBC 0.000 Nucleated RBC % 0.0 PT 13.8 INR 1.0 APTT 25.8 Sodium 136 L Potassium 4.3 Chloride 102 Carbon Dioxide 21 L Anion Gap 13 H BUN 19 H Creatinine 1.04 H Estim Creat Clear Calc 34 Estimated GFR 51 L Glucose 275 H POC Capillary Glucose 267 H Lactic Acid 3.1 H Calcium 10.7 H Total Bilirubin 0.5 AST 29 ALT 28 Alkaline Phosphatase 75 Total Protein 7.5 Albumin 4.9 Lipase 160 Beta-Hydroxybutyrate/Acetoacetate 1.06 H Urine Color Urine Appearance Urine pH Ur Specific Vinson Urine Protein Urine Glucose (UA) Urine Ketones Ur Blood (Man) Urine Nitrate Urine Bilirubin Urine Urobilinogen Leukocyte Esterase Rfl Urine RBC Urine WBC Ur Squamous Epith Cells Urine Bacteria Urine Casts Influenza A (RT-PCR) Influenza B (RT-PCR) RSV (RT-PCR) SARS-CoV-2 RNA (RT-PCR) 11/16/24 11/16/24 21:11 21:16 WBC RBC Hgb Hct MCV MCH MCHC RDW Plt Count MPV Immature Gran % (Auto) Neut % (Auto) Lymph % (Auto) Bartow % (Auto) Eos % (Auto) Baso % (Auto) Lymph # (Auto) Bartow # (Auto) Eos # (Auto) Baso # (Auto) Abs Immat Gran (auto) Absolute Neuts (auto) Absolute Nucleated RBC Nucleated RBC % PT INR APTT Sodium Potassium Chloride Carbon Dioxide Anion Gap BUN Creatinine Estim Creat Clear Calc Estimated GFR Glucose POC Capillary Glucose Lactic Acid 4.0 H Calcium Total Bilirubin AST ALT Alkaline Phosphatase Total Protein Albumin Lipase Beta-Hydroxybutyrate/Acetoacetate Urine Color Yellow Urine Appearance Clear Urine pH 8.5 Ur Specific Vinson 1.035 Urine Protein Negative Urine Glucose (UA) Trace H Urine Ketones 2+ H Ur Blood (Man) Negative Urine Nitrate Negative Urine Bilirubin Negative Urine Urobilinogen 0.2 Leukocyte Esterase Rfl 1+ H Urine RBC 0-2 Urine WBC 6-10 H Ur Squamous Epith Cells None seen Urine Bacteria None seen Urine Casts 0-2 Influenza A (RT-PCR) Negative Influenza B (RT-PCR) Negative RSV (RT-PCR) Negative SARS-CoV-2 RNA (RT-PCR) Negative Impressions Abdomen/Pelvis CT 11/16/24 20:31 IMPRESSION: Mild intrahepatic bile duct dilation, presumably related to cholecystectomy. No common bile duct dilation or obstructing stone or mass. Correlate with biliary labs. 3.7 cm right adrenal mass, with multiple additional smaller bilateral adrenal nodules. 1 cm indeterminate density left upper pole renal lesion. Multiple subcentimeter pancreatic cysts. Recommend comparison to outside studies if available to evaluate all of these lesions for stability. Otherwise, recommend nonemergent but timely multiphasic CT or MR without and with contrast. Distal descending colonic and sigmoid colon wall edema as can be seen with infectious, inflammatory, or ischemic colitis. Mild compression deformity at T11, presumed chronic unless accompanied by acute pain/tenderness. Assessment and Plan Assessment and plan (1) Colitis: Code(s): K52.9 - Noninfective gastroenteritis and colitis, unspecified Status: Acute (2) Dehydration: Code(s): E86.0 - Dehydration Status: Acute (3) Elevated lactic acid level: Code(s): R79.89 - Other specified abnormal findings of blood chemistry Status: Acute (4) Type 2 diabetes mellitus with hyperglycemia, without long-term current use of insulin: Code(s): E11.65 - Type 2 diabetes mellitus with hyperglycemia Status: Acute (5) Absence seizure disorder: Qualifiers: Intractability: not intractable Status epilepticus: without status epilepticus Qualified Code(s): G40.A09 - Absence epileptic syndrome, not intractable, without status epilepticus Code(s): G40.A09 - Absence epileptic syndrome, not intractable, without status epilepticus Status: Acute (6) Essential hypertension: Code(s): I10 - Essential (primary) hypertension Status: Acute Plan Colitis most likely infectious or ischemic in nature. Will continue empiric antibiotic therapy with Zosyn. Patient received 3 L of isotonic fluids in the ER. Will repeat lactic acid level. Will continue maintenance IV fluid hydration as patient's labs are consistent with dehydration. Will repeat electrolyte panel in CBC in a.m.. Patient is NPO except for meds with sips. General surgery was consulted from the ER. Patient does have type 2 diabetes mellitus with hyperglycemia. Baseline glucose control is not known. Will check A1c with a.m. labs. Hyperglycemia could simply be due to acute illness. Will hold glimepiride given NPO status. Will place patient on sliding scale insulin with Accu-Cheks q.6 hours while NPO. Patient does have a mildly elevated beta hydroxy butyrate but this is likely secondary to dehydration DKA is unlikely.. Will continue patient's home seizure medications. Patient's blood pressures are mildly elevated will continue monitor closely. Will resume home antihypertensives. Patient has been admitted as observation status. Quality VTE Prophylaxis VTE prophylaxis: pharmacologic ordered (Lovenox 30 mg subQ daily.) Hospitalist [facility] Advance Care Plan I have confirmed that the patient's Advanced Care Plan is present, code status is documented, or surrogate decision maker is listed in patient medical record.: Yes Medication Reconciliation I have utilized all available resources to obtain, update and review the patients current medications (includes all prescriptions, OTC, herbals, cannabis, and nutritional supplements).: Yes
[2024-11-16 23:08] VITALS: BP 160/99; PULSE 90; RESP 18; O2SAT 98
[2024-11-16 23:16] VITALS: BMI 26.6
--- NOTE | 2024-11-16 23:49 | ADMGEN ---
This patient, Micky Lee, was admitted to Medical Room 254-01 at 23:49. Patient/family oriented to hospital policies and general routines including ID bracelet, bed and alarms, visiting hours, pain management, procedures, bathroom and other care routines, personal items, smoking policy, room service/diet, and visiting hours. Information on how to activate the Rapid Response Team has been discussed. Patient/Family are encouraged to report perceived risks to care and to ask questions if they do not understand what they are told or what they should do.
[2024-11-17] MEDS: MORPHINE SULFATE (*CRX) 2 MG/ML INJ IV PUSH (00:01)
[2024-11-17] MEDS: SODIUM CHLORIDE 0.9% IV 1,000 ML 125 ML IV CONT ×3 (00:01→22:21)
[2024-11-17] MEDS: ONDANSETRON INJ 4 MG/2 ML VIAL IV PUSH (00:01)
[2024-11-17 00:02] VITALS: BP 158/62; PULSE 84; RESP 20; TEMP 36.4; O2SAT 100
[2024-11-17 00:05] LABS: Glucose Point of Care 232 mg/dl (65-105)
--- NOTE | 2024-11-17 00:20 | PC.NURSE ---
patient's son states patient lives in [place] and is just here visiting family
[2024-11-17] MEDS: PIPERACILLN/TAZ 3.375GM/NS50ML 3.375 GM/50 ML BAG IVPB (00:40)
[2024-11-17] MEDS: PROMETHAZINE HCL 25 MG/ML AMPUL IM (00:42)
[2024-11-17 01:02] LABS: Lactic Acid Reflex 2.1 mmol/L (0.7-2.0)
[2024-11-17 04:44] VITALS: BP 124/51; PULSE 75; RESP 20; TEMP 36.2; O2SAT 95
[2024-11-17 04:59] LABS: Basophils Percent Auto 0.1 % (0.2-1.2); Hematocrit 37.2 % (37.0-47.0); Hemoglobin 12.3 g/dL (12.0-15.0); Immature Granulocyte Absolute 0.06 K/mm3 (0.00-0.031); Immature Granulocyte Percent A 0.5 % (0-0.5); Lymphocytes Absolute Auto 1.35 K/mm3 (0.9-3.2); Lymphocytes Percent Auto 10.6 % (18.3-44.2); Mean Corpuscular HGB Conc 33.1 g/dl (32-36); Mean Corpuscular Hemoglobin 30.7 pg (26-34); Mean Corpuscular Volume 92.8 fl (80-100); Mean Platelet Volume 9.5 fl (7.4-10.4); Monocytes Absolute Auto 0.6 K/mm3 (0.1-0.6); Monocytes Percent Auto 4.3 % (2.6-8.5); Neutrophils Absolute Auto 10.8 K/mm3 (1.3-6.7); Neutrophils Percent Auto 84.5 % (45.5-73.1); Platelet Count Result 303 k/mm3 (150-375); Red Blood Count 4.01 M/mm3 (4.2-5.4); Red Cell Distribution Width 12.6 % (11.5-14.5); White Blood Count 12.7 K/mm3 (4.5-10.0)
[2024-11-17] MEDS: PIPERACILLIN/TAZ 2.25G/NS 50ML 2.25 GM/50 ML BAG IVPB ×2 (05:00→17:49)
[2024-11-17 05:23] LABS: Glucose Point of Care 190 mg/dl (65-105)
[2024-11-17 05:25] LABS: Alanine Aminotransferase 86 U/L (6-35); Albumin Level 4.1 g/dL (3.5-5.1); Alkaline Phosphatase 54 U/L (38-126); Anion Gap 9 mmol/L (4-12); Aspartate Amino Transferase 146 U/L (14-36); Bilirubin,Total 0.7 mg/dL (0.2-1.3); Blood Urea Nitrogen 13 mg/dL (7-17); Calcium 9.5 mg/dL (8.4-10.2); Carbon Dioxide 24 mmol/L (22-30); Chloride 104 mmol/L (98-107); Estimated CRCL calculation 37 ml/min; Estimated Glomerular Filt Rate 56; Glucose 195 mg/dL (65-110); Potassium 4.3 mmol/L (3.4-5.0); Sodium 137 mmol/L (137-145); Total Protein 6.5 g/dL (6.3-8.2)
[2024-11-17 07:58] VITALS: O2SAT 97
--- NOTE | 2024-11-17 08:11 | P.PNIM_ITS ---
Progress Note: A&P Assessment and Plan (1) Colitis: Code(s): K52.9 - Noninfective gastroenteritis and colitis, unspecified Status: Acute Assessment and Plan: * N/V/abdominal pain x3day. Normally 1 bowel movement q3days, after taking Ducolax and having bowel movement on 11/16 she started having the n/v/abd pain * Likely infectious/ischemic in nature * Started on IV Zosyn and maintenance IVF in ED * Gen Surgery consult, appreciate further recommendations * 11/17 * Continue IVF and Antibiotics * Reports symptoms greatly improved - No episodes of emesis, abdominal pain or nausea today (2) Dehydration: Code(s): E86.0 - Dehydration Status: Acute Assessment and Plan: * See above * 3L Bolus given in ED * IVF maintenance (3) Elevated lactic acid level: Code(s): R79.89 - Other specified abnormal findings of blood chemistry Status: Acute Assessment and Plan: * In ED: 3.1 * Received 3L NS in ER * 11/17: 2.1 (4) Type 2 diabetes mellitus with hyperglycemia, without long-term current use of insulin: Code(s): E11.65 - Type 2 diabetes mellitus with hyperglycemia Status: Acute Assessment and Plan: * Hypoglycemia protocol * POC blood glucose ACHS * Home medication - Glimepiride (on hold due to NPO status) * Correct regimen ordered -SSI low dose TIDWM and HS * A1C pending * Elevated B-hydroxybutyrate likely 2/2 dehydration (5) Absence seizure disorder: Qualifiers: Intractability: not intractable Status epilepticus: without status epilepticus Qualified Code(s): G40.A09 - Absence epileptic syndrome, not intractable, without status epilepticus Code(s): G40.A09 - Absence epileptic syndrome, not intractable, without status epilepticus Status: Acute Assessment and Plan: * Continue at home medications (6) Essential hypertension: Code(s): I10 - Essential (primary) hypertension Status: Acute Assessment and Plan: Patient's blood pressure was reviewed on 11/17 Blood pressure remains well controlled. Will continue current medications. Subjective Date/time seen: 11/17/24 08:11 Interval history: 79-year-old female with a past medical history of seizure disorder, essential hypertension, irritable bowel syndrome, type 2 diabetes, depression and prior cholecystectomy and hysterectomy who presented to the ER with nausea vomiting and abdominal pain. 11/17/2024 Patient sitting comfortably in bed at time of exam. Reports her symptoms have largely resolved at this time. Denies any CP, SOB, n/v, abdominal pain at this time. No episodes of emesis or nausea since time of admission. Gen surgery consult still pending at this time. Will continue giving IVF and antibiotics for suspected colitis and associated dehydration. Otherwise has no complaints at this time. Review of Systems Review of Systems: 12 systems were reviewed with pertinent positives and negatives per HPI. Except as documented in the HPI, all other systems were reviewed and are negative. She has not had a seizure in many years. Exam Narrative: Weight 72.5 kg BMI 26.6 Const: Other: Well-developed, well-nourished, mildly ill-appearing HENMT: Other: Mucous membranes are tacky, no oral pharyngeal erythema, good dentition Eyes: Other: Pupils are equal and reactive, bilateral lens implants noted, no conjunctival pallor, no scleral icterus Neck: Other: No lymphadenopathy, no thyromegaly Resp: Other: Clear to auscultation bilaterally, no increased work of breathing Cardio: Other: Regular rate, regular rhythm, no murmur, 2+ bilateral radial pedal pulses, no JVD GI: Other: Soft, nontender, nondistended, positive bowel sounds Skin: Other: Generalized pallor, non jaundice Neuro: Other: Alert oriented x4, speech is clear, no facial asymmetry, no localizing neurologic deficits noted Extrem: Other: No clubbing, no cyanosis, 1+ pitting edema bilateral lower extremities Psych: Other: Anxious, pleasant, cooperative, appropriate judgment and insight Objective Data Vital Signs Vital Signs: Vital Signs - 24 hr 11/16/24 17:47 11/16/24 18:20 11/16/24 18:46 Temperature 97.8 F Pulse Rate 98 79 85 Respiratory Rate 22 H 15 16 Blood Pressure 150/115 H 160/72 H 149/67 H Pulse Oximetry 100 100 97 Oxygen Delivery Room Air 11/16/24 19:01 11/16/24 19:16 11/16/24 23:08 Temperature Pulse Rate 80 74 90 Respiratory Rate 15 24 H 18 Blood Pressure 163/66 H 121/109 H 160/99 H Pulse Oximetry 97 98 Oxygen Delivery 11/16/24 23:16 11/17/24 00:02 11/17/24 04:44 Temperature 97.6 F 97.2 F L Pulse Rate 84 75 Respiratory Rate 20 20 Blood Pressure 158/62 H 124/51 L Pulse Oximetry 100 95 Oxygen Delivery Room Air 11/17/24 07:58 Temperature Pulse Rate Respiratory Rate Blood Pressure Pulse Oximetry 97 Oxygen Delivery Room Air Intake/Output Intake/Output: Intake & Output 11/14/24 11/15/24 11/16/24 11/17/24 23:59 23:59 23:59 23:59 Intake Total 1999 591.3 Output Total 400 Balance 1999 191.3 Meds/Results Medications: Active Medications Generic Name Dose Route Start Last Admin Trade Name Freq PRN Reason Stop Dose Admin Amlodipine Besylate 5 mg 11/17/24 09:00 Amlodipine Besylate 5 Mg Tablet PO DAILY [facility] Dextrose 12.5 gm 11/17/24 04:16 Dextrose 50% 25 Gm/50 Ml Syringe IV PUSH PRN PRN Hypoglycemia Protocol Enoxaparin Sodium 30 mg 11/17/24 09:00 Enoxaparin 30 Mg/0.3 Ml Syringe SUB-Q DAILY [facility] Fluoxetine HCl 20 mg 11/17/24 18:00 Fluoxetine Hcl 20 Mg Capsule PO QPM [facility] Glucagon 1 mg 11/17/24 04:16 Glucagon For Inj 1 Mg Vial IM PRN PRN Hypoglycemia Protocol Glucose 15 gm 11/17/24 04:16 Glucose Oral Gel 15 Gm Of Glucse In 37.5 Gm Tube PO PRN PRN Hypoglycemia Protocol Piperacillin Sod/Tazobactam Sod 2.25 gm in 50 mls @ 100 mls/hr 11/17/24 06:00 11/17/24 05:00 Zosyn 2.25 Gm/Ns 50 Ml IVPB 100 mls/hr Q6HR [facility] Administration Sodium Chloride 1,000 mls @ 125 mls/hr 11/16/24 22:25 11/17/24 04:40 Normal Saline Iv IV CONT 125 mls/hr .Q8H [facility] Infusion Dextrose 1,000 mls @ 100 mls/hr 11/17/24 04:16 Dextrose 5% 1,000 Ml IVPB PRN PRN Hypoglycemia Protocol Insulin Aspart 3 - 6 units 11/17/24 06:00 11/17/24 05:20 Insulin Aspart (*Bkc) 100 Units/Ml SUB-Q Not Given Q6HR [facility] Protocol Lamotrigine 50 mg 11/17/24 09:00 Lamotrigine 50 Mg Tablet PO Q12HR [facility] Levetiracetam 1,000 mg 11/17/24 09:00 Levetiracetam 500 Mg Tablet PO Q12HR [facility] Lisinopril 20 mg 11/17/24 09:00 Lisinopril 20 Mg Tablet PO DAILY [facility] Morphine Sulfate 2 mg 11/16/24 22:22 11/17/24 00:01 Morphine Sulfate (*Crx) 2 Mg/Ml Inj IV PUSH 2 mg Q2H PRN Administration Pain Rated 7-10 Ondansetron HCl 4 mg 11/16/24 22:22 11/17/24 00:01 Ondansetron Inj 4 Mg/2 Ml Vial IV PUSH 4 mg Q4H PRN Administration Nausea Promethazine HCl 25 mg 11/17/24 00:33 11/17/24 00:42 Promethazine Hcl 25 Mg/Ml Ampul IM 25 mg Q4H PRN Administration Intractable nausea vomiting Trazodone HCl 50 mg 11/17/24 21:00 Trazodone Hcl 50 Mg Tablet PO HS [facility] Radiology Results: ITS Impressions Abdomen/Pelvis CT 11/16/24 20:31 IMPRESSION: Mild intrahepatic bile duct dilation, presumably related to cholecystectomy. No common bile duct dilation or obstructing stone or mass. Correlate with biliary labs. 3.7 cm right adrenal mass, with multiple additional smaller bilateral adrenal nodules. 1 cm indeterminate density left upper pole renal lesion. Multiple subcentimeter pancreatic cysts. Recommend comparison to outside studies if available to evaluate all of these lesions for stability. Otherwise, recommend nonemergent but timely multiphasic CT or MR without and with contrast. Distal descending colonic and sigmoid colon wall edema as can be seen with infectious, inflammatory, or ischemic colitis. Mild compression deformity at T11, presumed chronic unless accompanied by acute pain/tenderness. Labs Labs: Laboratory Results - last 24 hr 11/16/24 11/16/24 11/16/24 18:17 18:22 18:25 WBC 15.1 H RBC 4.54 Hgb 13.7 Hct 41.7 MCV 91.9 MCH 30.2 MCHC 32.9 RDW 12.7 Plt Count 364 MPV 9.4 Immature Gran % (Auto) 0.3 Neut % (Auto) 88.9 H Lymph % (Auto) 9.1 L [place] % (Auto) 1.6 L Eos % (Auto) 0.0 Baso % (Auto) 0.1 L Lymph # (Auto) 1.37 [place] # (Auto) 0.2 Eos # (Auto) 0.0 Baso # (Auto) 0.0 Abs Immat Gran (auto) 0.05 H Absolute Neuts (auto) 13.4 H Absolute Nucleated RBC 0.000 Nucleated RBC % 0.0 PT 13.8 INR 1.0 APTT 25.8 Sodium 136 L Potassium 4.3 Chloride 102 Carbon Dioxide 21 L Anion Gap 13 H BUN 19 H Creatinine 1.04 H Estim Creat Clear Calc 34 Estimated GFR 51 L Glucose 275 H POC Capillary Glucose 267 H Lactic Acid 3.1 H Calcium 10.7 H Total Bilirubin 0.5 AST 29 ALT 28 Alkaline Phosphatase 75 Total Protein 7.5 Albumin 4.9 Lipase 160 Beta-Hydroxybutyrate/Acetoacetate 1.06 H Urine Color Urine Appearance Urine pH Ur Specific [place] Urine Protein Urine Glucose (UA) Urine Ketones Ur Blood (Man) Urine Nitrate Urine Bilirubin Urine Urobilinogen Leukocyte Esterase Rfl Urine RBC Urine WBC Ur Squamous Epith Cells Urine Bacteria Urine Casts Influenza A (RT-PCR) Influenza B (RT-PCR) RSV (RT-PCR) SARS-CoV-2 RNA (RT-PCR) 11/16/24 11/16/24 11/16/24 21:11 21:16 23:54 WBC RBC Hgb Hct MCV MCH MCHC RDW Plt Count MPV Immature Gran % (Auto) Neut % (Auto) Lymph % (Auto) [place] % (Auto) Eos % (Auto) Baso % (Auto) Lymph # (Auto) [place] # (Auto) Eos # (Auto) Baso # (Auto) Abs Immat Gran (auto) Absolute Neuts (auto) Absolute Nucleated RBC Nucleated RBC % PT INR APTT Sodium Potassium Chloride Carbon Dioxide Anion Gap BUN Creatinine Estim Creat Clear Calc Estimated GFR Glucose POC Capillary Glucose 232 H Lactic Acid 4.0 H Calcium Total Bilirubin AST ALT Alkaline Phosphatase Total Protein Albumin Lipase Beta-Hydroxybutyrate/Acetoacetate Urine Color Yellow Urine Appearance Clear Urine pH 8.5 Ur Specific [place] 1.035 Urine Protein Negative Urine Glucose (UA) Trace H Urine Ketones 2+ H Ur Blood (Man) Negative Urine Nitrate Negative Urine Bilirubin Negative Urine Urobilinogen 0.2 Leukocyte Esterase Rfl 1+ H Urine RBC 0-2 Urine WBC 6-10 H Ur Squamous Epith Cells None seen Urine Bacteria None seen Urine Casts 0-2 Influenza A (RT-PCR) Negative Influenza B (RT-PCR) Negative RSV (RT-PCR) Negative SARS-CoV-2 RNA (RT-PCR) Negative 11/17/24 11/17/24 11/17/24 00:33 04:36 05:18 WBC 12.7 H RBC 4.01 L Hgb 12.3 Hct 37.2 MCV 92.8 MCH 30.7 MCHC 33.1 RDW 12.6 Plt Count 303 MPV 9.5 Immature Gran % (Auto) 0.5 Neut % (Auto) 84.5 H Lymph % (Auto) 10.6 L [place] % (Auto) 4.3 Eos % (Auto) 0.0 Baso % (Auto) 0.1 L Lymph # (Auto) 1.35 [place] # (Auto) 0.6 Eos # (Auto) 0.0 Baso # (Auto) 0.0 Abs Immat Gran (auto) 0.06 H Absolute Neuts (auto) 10.8 H Absolute Nucleated RBC 0.000 Nucleated RBC % 0.0 PT INR APTT Sodium 137 Potassium 4.3 Chloride 104 Carbon Dioxide 24 Anion Gap 9 BUN 13 D Creatinine 0.96 Estim Creat Clear Calc 37 Estimated GFR 56 L Glucose 195 H POC Capillary Glucose 190 H Lactic Acid 2.1 H Calcium 9.5 Total Bilirubin 0.7 AST 146 H ALT 86 H Alkaline Phosphatase 54 Total Protein 6.5 Albumin 4.1 Lipase Beta-Hydroxybutyrate/Acetoacetate Urine Color Urine Appearance Urine pH Ur Specific [place] Urine Protein Urine Glucose (UA) Urine Ketones Ur Blood (Man) Urine Nitrate Urine Bilirubin Urine Urobilinogen Leukocyte Esterase Rfl Urine RBC Urine WBC Ur Squamous Epith Cells Urine Bacteria Urine Casts Influenza A (RT-PCR) Influenza B (RT-PCR) RSV (RT-PCR) SARS-CoV-2 RNA (RT-PCR) Quality VTE Prophylaxis VTE prophylaxis: pharmacologic ordered (Lovenox 30 mg subQ daily.)
[2024-11-17] MEDS: lamoTRIgine 50 MG TABLET PO ×2 (08:38→20:27)
[2024-11-17] MEDS: lisinopriL 20 MG TABLET PO (08:38)
[2024-11-17] MEDS: levETIRAcetam 500 MG TABLET 1000 MG PO ×2 (08:38→20:27)
[2024-11-17] MEDS: amLODIPine BESYLATE 5 MG TABLET PO (08:38)
[2024-11-17] MEDS: ENOXAPARIN 30 MG/0.3 ML SYRINGE SUB-Q (08:43)
--- NOTE | 2024-11-17 10:19 | P.CONGS_ITS ---
Assessment and Plan Assessment and plan (1) Colitis: Code(s): K52.9 - Noninfective gastroenteritis and colitis, unspecified <Mohini Salas PA-C - Last Filed: 11/17/24 10:58> Status: Acute <Mohini Salas PA-C - Last Filed: 11/17/24 10:58> Assessment and Plan: Patient presented yesterday with abdominal pain, nausea, and vomiting. She also had a lactic acid level of 4.0 and WBC count of 15.1 [address] imaging suggestive of colonic edema suggestive of colitis. Patient is clinically improving with lactic acid and WBC counts downtrending. No complaints of abdominal pain. No nausea/vomiting since admission. Physical exam benign. * Clear liquid diet. * Continue Zosyn. Continue to monitor with serial labs and exams. * Could consider outpatient colonoscopy once colitis resolves. <Mohini Salas PA-C - Last Filed: 11/17/24 10:58> History of Present Illness Consult details Consult date: 11/17/24 <Mohini Salas PA-C - Last Filed: 11/17/24 10:58> 11/17/24 <Shellie Garay MD - Last Filed: 11/17/24 10:56> Reason for consult: other (colitis, uptrending lactic acid) <Mohini Salas PA-C - Last Filed: 11/17/24 10:58> Requesting physician: Eva Adams PA-C <Mohini Salas PA-C - Last Filed: 11/17/24 10:58> Narrative: Patient is a 79 yr old female who presented to the ED yesterday with complaints of nausea and vomiting with associated abdominal pain that started earlier in the morning. She stated that she had been constipated prior to this and then had 3 bowel movements yesterday. She frequently has constipation and sometimes takes stool softener for this, but not always. She does not recall eating anything that could have provoked the vomiting. No recent travel out of the country or sick contacts. No hematochezia or hematemesis. Denies fever, dysuria, or hematuria. Abdominal surgical history includes hysterectomy and cholecystectomy. No history of Crohn's, ulcerative colitis, or diverticulitis. She believes that last colonoscopy was over 10 years ago. She recalls it being benign. Patient has not had any episodes of emesis or bowel movements since admission. She is currently NPO and states that she is hungry. WBC downtrending at 12.7 (15.1 yesterday). Lactic acid downtrending at 2.1 (4.0 yesterday). CT abd/pelvis demonstrated distal descending colonic and sigmoid colon wall edema, likely infectious, inflammatory, or ischemic colitis. No evidence of bowel obstruction. Also showed mild intrahepatic bile duct dilation, presumably related to cholecystectomy. No common bile duct dilation or obstructing stone or mass. 3.7 cm right adrenal mass, with multiple additional smaller bilateral adrenal nodules. 1 cm indeterminate density left upper pole renal lesion. Multiple subcentimeter pancreatic cysts. Recommend comparison to outside studies if available to evaluate all of these lesions for stability. Otherwise, recommend nonemergent but timely multiphasic CT or MR without and with contrast. 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 Compression fracture of T11 vertebra Depression Hyperlipidemia Essential hypertension Type 2 diabetes mellitus <Mohini Salas PA-C - Last Filed: 11/17/24 10:58> Surgical History Surgical History: Surgical History History of partial thyroidectomy Due to goiter Status post cataract extraction of both eyes with insertion of intraocular lens History of total abdominal hysterectomy and bilateral salpingo-oophorectomy Hx of cholecystectomy <Mohini Salas PA-C - Last Filed: 11/17/24 10:58> Family History Family History: Family History Daughter , Age 48 History of blood clots <Mohini Salas PA-C - Last Filed: 11/17/24 10:58> Social History Social History: Social History (Updated 11/17/24 @ 04:04 by Radha Lemus DO) Social History: Patient is . She lives alone in her own home. She is independent in activities of daily living. She is a lifelong nonsmoker and does not drink alcohol or use illicit substances. 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 She raised 3 children. She has 1 son who lives out of state but is currently at the bedside. And she has 1 daughter who lives locally. Code status: Full code (however she would not want to be on long-term ventilation or feeding tube) Healthcare power of electrical hardware engineer: Liliana (daughter) Smoking status: Never smoker Alcohol intake: never Substance use: never Substance use type: does not use Do You Feel Safe in your Home?: Yes Lack of Transportation: No Lack of Food: Never True Current Housing: I Have Housing Concerned About Future Housing: No Difficulty Paying Gas/Electric Bills: No Difficulty Paying for Meds: No Currently Unemployed: No Education: High School Diploma/GED Difficulty w/ Childcare or Family Care: No Spiritual care concerns: No <Mohini Salas PA-C - Last Filed: 11/17/24 10:58> Meds Home Medications and Allergies Home medications: Home Medications ?Medication ?Instructions ?Recorded ?Confirmed ?Type amlodipine 5 mg tablet 5 mg PO DAILY 11/16/24 11/17/24 History fluoxetine 20 mg capsule 20 mg PO QPM 11/16/24 11/17/24 History glimepiride 4 mg tablet 4 mg PO QAM 11/16/24 11/17/24 History lamotrigine 25 mg tablet 50 mg PO Q12H 11/16/24 11/17/24 History levetiracetam 500 mg tablet 1,000 mg PO Q12H 11/16/24 11/17/24 History lisinopril 20 mg tablet 20 mg PO DAILY 11/16/24 11/17/24 History rosuvastatin 10 mg tablet 10 mg PO HS 11/16/24 11/17/24 History trazodone 50 mg tablet 50 mg PO HS 11/16/24 11/17/24 History semaglutide 0.25 mg or 0.5 mg (2 0.5 mg subcut WEEKLY 11/17/24 11/17/24 History mg/3 mL) subcutaneous pen injector (Ozempic) <Mohini Salas PA-C - Last Filed: 11/17/24 10:58> Allergies/Adverse reactions: Allergies Allergy/AdvReac Type Severity Reaction Status Date / Time No Known Allergies Allergy Verified 11/16/24 19:07 <CHANA Fernandez Last Filed: 11/17/24 10:58> Vital Signs Vital Signs - 24 hr 11/16/24 17:47 11/16/24 18:20 11/16/24 18:46 Temperature 97.8 F Pulse Rate 98 79 85 Respiratory Rate 22 H 15 16 Blood Pressure 150/115 H 160/72 H 149/67 H Pulse Oximetry 100 100 97 Oxygen Delivery Room Air 11/16/24 19:01 11/16/24 19:16 11/16/24 23:08 Temperature Pulse Rate 80 74 90 Respiratory Rate 15 24 H 18 Blood Pressure 163/66 H 121/109 H 160/99 H Pulse Oximetry 97 98 Oxygen Delivery 11/16/24 23:16 11/17/24 00:02 11/17/24 04:44 Temperature 97.6 F 97.2 F L Pulse Rate 84 75 Respiratory Rate 20 20 Blood Pressure 158/62 H 124/51 L Pulse Oximetry 100 95 Oxygen Delivery Room Air 11/17/24 07:58 Temperature Pulse Rate Respiratory Rate Blood Pressure Pulse Oximetry 97 Oxygen Delivery Room Air <CHANA Fernandez Last Filed: 11/17/24 10:58> Exam 2 Const: General: comfortable and no acute distress <CHANA Fernandez Last Filed: 11/17/24 10:58> HENMT: Face/Nose/Sinus: Normal nares present <CHANA Fernandez Last Filed: 11/17/24 10:58> Mouth: Yes moist mucous membranes <CHANA Fernandez Last Filed: 11/17/24 10:58> Eyes: General: appearance normal, both eyes and all related structures < CHANA Fernandez Last Filed: 11/17/24 10:58> Neck: Neck: supple <CHANA Fernandez Last Filed: 11/17/24 10:58> Resp: Effort & Inspection: normal respiratory effort <CHANA Fernandez Last Filed: 11/17/24 10:58> Cardio: Rate: regular rate <RosieCHANA Brown Last Filed: 11/17/24 10:58> GI: GI Palp: Yes Soft to palpation, No Tenderness to palpation present (GI) and No Guarding due to palpation present (GI) <CHANA Fernandez Last Filed: 11/17/24 10:58> Auscultation: abnormal bowel sounds (hypoactive) <GERI Fernandez Last Filed: 11/17/24 10:58> : General: Yes bladder normal to palpation <RosieNhung Salas PA-C Nicolás Last Filed: 11/17/24 10:58> Skin: General skin exam: normal color and no rashes or lesions noted < CHANA Fernandez Last Filed: 11/17/24 10:58> Neuro: Speech: normal speech <CHANA Fernandez Last Filed: 11/17/24 10:58> Results Labs Result diagrams: 11/17/24 04:36 11/17/24 04:36 <CHANA Fernandez Last Filed: 11/17/24 10:58> Labs: Abnormal lab results 11/16/24 11/16/24 11/16/24 Range/Units 18:17 18:22 18:25 WBC 15.1 H (4.5-10.0) K/mm3 RBC (4.2-5.4) M/mm3 Neut % (Auto) 88.9 H (45.5-73.1) % Lymph % (Auto) 9.1 L (18.3-44.2) % [place] % (Auto) 1.6 L (2.6-8.5) % Baso % (Auto) 0.1 L (0.2-1.2) % Abs Immat Gran (auto) 0.05 H (0.00-0.031) K/mm3 Absolute Neuts (auto) 13.4 H (1.3-6.7) K/mm3 Sodium 136 L (137-145) mmol/L Carbon Dioxide 21 L (22-30) mmol/L Anion Gap 13 H (4-12) mmol/L BUN 19 H (7-17) mg/dL Creatinine 1.04 H (0.7-1.0) mg/dL Estimated GFR 51 L (59 - ) Glucose 275 H (65-110) mg/dL POC Capillary Glucose 267 H (65-105) mg/dl Lactic Acid 3.1 H (0.7-2.0) mmol/L Calcium 10.7 H (8.4-10.2) mg/dL AST (14-36) U/L ALT (6-35) U/L Beta-Hydroxybutyrate/Acetoacetate 1.06 H (0.02-0.27) mmol/L Urine Glucose (UA) (Negative) mg/dL Urine Ketones (Negative) mg/dL Leukocyte Esterase Rfl (Negative) SANGEETA/UL Urine WBC (0-3) /hpf 11/16/24 11/16/24 11/16/24 Range/Units 21:11 21:16 23:54 WBC (4.5-10.0) K/mm3 RBC (4.2-5.4) M/mm3 Neut % (Auto) (45.5-73.1) % Lymph % (Auto) (18.3-44.2) % [place] % (Auto) (2.6-8.5) % Baso % (Auto) (0.2-1.2) % Abs Immat Gran (auto) (0.00-0.031) K/mm3 Absolute Neuts (auto) (1.3-6.7) K/mm3 Sodium (137-145) mmol/L Carbon Dioxide (22-30) mmol/L Anion Gap (4-12) mmol/L BUN (7-17) mg/dL Creatinine (0.7-1.0) mg/dL Estimated GFR (59 - ) Glucose (65-110) mg/dL POC Capillary Glucose 232 H (65-105) mg/dl Lactic Acid 4.0 H (0.7-2.0) mmol/L Calcium (8.4-10.2) mg/dL AST (14-36) U/L ALT (6-35) U/L Beta-Hydroxybutyrate/Acetoacetate (0.02-0.27) mmol/L Urine Glucose (UA) Trace H (Negative) mg/dL Urine Ketones 2+ H (Negative) mg/dL Leukocyte Esterase Rfl 1+ H (Negative) SANGEETA/UL Urine WBC 6-10 H (0-3) /hpf 11/17/24 11/17/24 11/17/24 Range/Units 00:33 04:36 05:18 WBC 12.7 H (4.5-10.0) K/mm3 RBC 4.01 L (4.2-5.4) M/mm3 Neut % (Auto) 84.5 H (45.5-73.1) % Lymph % (Auto) 10.6 L (18.3-44.2) % [place] % (Auto) (2.6-8.5) % Baso % (Auto) 0.1 L (0.2-1.2) % Abs Immat Gran (auto) 0.06 H (0.00-0.031) K/mm3 Absolute Neuts (auto) 10.8 H (1.3-6.7) K/mm3 Sodium (137-145) mmol/L Carbon Dioxide (22-30) mmol/L Anion Gap (4-12) mmol/L BUN (7-17) mg/dL Creatinine (0.7-1.0) mg/dL Estimated GFR 56 L (59 - ) Glucose 195 H (65-110) mg/dL POC Capillary Glucose 190 H (65-105) mg/dl Lactic Acid 2.1 H (0.7-2.0) mmol/L Calcium (8.4-10.2) mg/dL AST 146 H (14-36) U/L ALT 86 H (6-35) U/L Beta-Hydroxybutyrate/Acetoacetate (0.02-0.27) mmol/L Urine Glucose (UA) (Negative) mg/dL Urine Ketones (Negative) mg/dL Leukocyte Esterase Rfl (Negative) SANGEETA/UL Urine WBC (0-3) /hpf Diabetes panel 11/16/24 11/17/24 Range/Units 18:22 04:36 Sodium 136 L 137 (137-145) mmol/L Potassium 4.3 4.3 (3.4-5.0) mmol/L Chloride 102 104 (98-107) mmol/L Carbon Dioxide 21 L 24 (22-30) mmol/L BUN 19 H 13 D (7-17) mg/dL Creatinine 1.04 H 0.96 (0.7-1.0) mg/dL Glucose 275 H 195 H (65-110) mg/dL Calcium 10.7 H 9.5 (8.4-10.2) mg/dL AST 29 146 H (14-36) U/L ALT 28 86 H (6-35) U/L Alkaline Phosphatase 75 54 (38-126) U/L Total Protein 7.5 6.5 (6.3-8.2) g/dL Albumin 4.9 4.1 (3.5-5.1) g/dL Calcium panel 11/16/24 11/17/24 Range/Units 18:22 04:36 Calcium 10.7 H 9.5 (8.4-10.2) mg/dL Albumin 4.9 4.1 (3.5-5.1) g/dL Pituitary panel 11/16/24 11/17/24 Range/Units 18:22 04:36 Sodium 136 L 137 (137-145) mmol/L Potassium 4.3 4.3 (3.4-5.0) mmol/L Chloride 102 104 (98-107) mmol/L Carbon Dioxide 21 L 24 (22-30) mmol/L BUN 19 H 13 D (7-17) mg/dL Creatinine 1.04 H 0.96 (0.7-1.0) mg/dL Glucose 275 H 195 H (65-110) mg/dL Calcium 10.7 H 9.5 (8.4-10.2) mg/dL Adrenal panel 11/16/24 11/17/24 Range/Units 18:22 04:36 Sodium 136 L 137 (137-145) mmol/L Potassium 4.3 4.3 (3.4-5.0) mmol/L Chloride 102 104 (98-107) mmol/L Carbon Dioxide 21 L 24 (22-30) mmol/L BUN 19 H 13 D (7-17) mg/dL Creatinine 1.04 H 0.96 (0.7-1.0) mg/dL Glucose 275 H 195 H (65-110) mg/dL Calcium 10.7 H 9.5 (8.4-10.2) mg/dL Total Bilirubin 0.5 0.7 (0.2-1.3) mg/dL AST 29 146 H (14-36) U/L ALT 28 86 H (6-35) U/L Alkaline Phosphatase 75 54 (38-126) U/L Total Protein 7.5 6.5 (6.3-8.2) g/dL Albumin 4.9 4.1 (3.5-5.1) g/dL All other labs normal. <Mohini Salas PA-C - Last Filed: 11/17/24 10:58> Imaging Abdomen CT scan report/results: report reviewed and image reviewed <Shellie Garay MD - Last Filed: 11/17/24 10:56> Attestation Supervising Provider Attestation I, Shellie Garay MD, have provided a substantive portion of the care of this patient. I performed the history, exam and/or medical decision making for this encounter. abd - S, sl dist, NT, labs and imaging reviewed, exam benign this am, cont abx, ok to start clears and ADAT, will likely need interval colonoscopy Shellie Garay MD 11/17/24;10:55 <Shellie Garay MD - Last Filed: 11/17/24 10:56>
[2024-11-17 11:39] LABS: Glucose Point of Care 147 mg/dl (65-105)
[2024-11-17 14:00] VITALS: BP 123/43; PULSE 84; RESP 16; TEMP 36.9; O2SAT 97
[2024-11-17 17:04] LABS: Glucose Point of Care 128 mg/dl (65-105)
[2024-11-17] MEDS: FLUoxetine HCL 20 MG CAPSULE PO (17:49)
[2024-11-17] MEDS: traZODone HCL 50 MG TABLET PO (20:27)
[2024-11-17 21:44] VITALS: BP 123/46; PULSE 61; RESP 18; TEMP 36.8; O2SAT 94
[2024-11-17 21:52] LABS: Glucose Point of Care 136 mg/dl (65-105)
[2024-11-18] MEDS: PIPERACILLIN/TAZ 2.25G/NS 50ML 2.25 GM/50 ML BAG IVPB ×2 (00:48→05:30)
[2024-11-18 03:28] VITALS: BP 121/56; PULSE 65; RESP 18; TEMP 36.5; O2SAT 95
[2024-11-18 05:20] LABS: Hematocrit 33.1 % (37.0-47.0); Hemoglobin 10.7 g/dL (12.0-15.0); Mean Corpuscular HGB Conc 32.3 g/dl (32-36); Mean Corpuscular Hemoglobin 30.7 pg (26-34); Mean Corpuscular Volume 95.1 fl (80-100); Mean Platelet Volume 9.4 fl (7.4-10.4); Platelet Count Result 258 k/mm3 (150-375); Red Blood Count 3.48 M/mm3 (4.2-5.4); Red Cell Distribution Width 13.4 % (11.5-14.5); White Blood Count 10.1 K/mm3 (4.5-10.0)
[2024-11-18 05:38] LABS: Anion Gap 6 mmol/L (4-12); Blood Urea Nitrogen 11 mg/dL (7-17); Calcium 8.7 mg/dL (8.4-10.2); Carbon Dioxide 22 mmol/L (22-30); Chloride 111 mmol/L (98-107); Estimated CRCL calculation 34 ml/min; Estimated Glomerular Filt Rate 50; Glucose 115 mg/dL (65-110); Potassium 3.6 mmol/L (3.4-5.0); Sodium 139 mmol/L (137-145)
[2024-11-18 07:59] LABS: Glucose Point of Care 108 mg/dl (65-105)
[2024-11-18] MEDS: lamoTRIgine 50 MG TABLET PO (08:39)
[2024-11-18] MEDS: lisinopriL 20 MG TABLET PO (08:39)
[2024-11-18] MEDS: levETIRAcetam 500 MG TABLET 1000 MG PO (08:39)
[2024-11-18] MEDS: amLODIPine BESYLATE 5 MG TABLET PO (08:39)
[2024-11-18] MEDS: ENOXAPARIN 30 MG/0.3 ML SYRINGE SUB-Q (08:49)
--- NOTE | 2024-11-18 09:42 | P.PNGS_ITS ---
Progress Note: A&P Assessment and Plan (1) Colitis: Code(s): K52.9 - Noninfective gastroenteritis and colitis, unspecified Status: Acute Assessment and Plan: Patient presented yesterday with abdominal pain, nausea, and vomiting. She also had a lactic acid level of 4.0 and WBC count of 15.[address] imaging suggestive of colonic edema suggestive of colitis. Patient is clinically improving with lactic acid and WBC counts downtrending. No complaints of abdominal pain. No nausea/vomiting since admission. Physical exam benign. * Advance diet as tolerated. If able to tolerate, patient is stable for discharge from surgical standpoint. * Continue Zosyn. Continue to monitor with serial labs and exams. * Could consider outpatient colonoscopy once colitis resolves. Subjective Subjective Date/Time Seen: 11/18/24 09:42 Interval history: Patient is doing well today. No acute events overnight. WBC downtrending at 10.1. She tolerated clear liquid diet yesterday with no nausea or vomiting. No complaints of abdominal pain today. Last lactic acid level yesterday down trending at 2.1. Exam GI: Inspection: non-distended GI Palp: Yes Soft to palpation, No Tenderness to palpation present (GI) and No Guarding due to palpation present (GI) Auscultation: abnormal bowel sounds (hypoactive) Objective Data Vital Signs Vital Signs: Vital Signs - 24 hr 11/17/24 14:00 11/17/24 20:30 11/17/24 21:44 Temperature 98.5 F 98.3 F Pulse Rate 84 61 Respiratory Rate 16 18 Blood Pressure 123/43 L 123/46 L Pulse Oximetry 97 94 Oxygen Delivery Room Air 11/18/24 03:28 Temperature 97.7 F Pulse Rate 65 Respiratory Rate 18 Blood Pressure 121/56 L Pulse Oximetry 95 Oxygen Delivery Intake/Output Intake/Output: Intake & Output 11/15/24 11/16/24 11/17/24 11/18/24 23:59 23:59 23:59 23:59 Intake Total 1999 3058.0 1605 Output Total 1400 Balance 1999 1658.0 1605 Meds/Results Medications: Active Medications Generic Name Dose Route Start Last Admin Trade Name Freq PRN Reason Stop Dose Admin Amlodipine Besylate 5 mg 11/17/24 09:00 11/18/24 08:39 Amlodipine Besylate 5 Mg Tablet PO 5 mg DAILY MAGGI Administration Dextrose 12.5 gm 11/17/24 04:16 Dextrose 50% 25 Gm/50 Ml Syringe IV PUSH PRN PRN Hypoglycemia Protocol Enoxaparin Sodium 30 mg 11/17/24 09:00 11/18/24 08:49 Enoxaparin 30 Mg/0.3 Ml Syringe SUB-Q 30 mg DAILY MAGGI Administration Fluoxetine HCl 20 mg 11/17/24 18:00 11/17/24 17:49 Fluoxetine Hcl 20 Mg Capsule PO 20 mg QPM MAGGI Administration Glucagon 1 mg 11/17/24 04:16 Glucagon For Inj 1 Mg Vial IM PRN PRN Hypoglycemia Protocol Glucose 15 gm 11/17/24 04:16 Glucose Oral Gel 15 Gm Of Glucse In 37.5 Gm Tube PO PRN PRN Hypoglycemia Protocol Piperacillin Sod/Tazobactam Sod 2.25 gm in 50 mls @ 100 mls/hr 11/17/24 06:00 11/18/24 05:30 Zosyn 2.25 Gm/Ns 50 Ml IVPB 100 mls/hr Q6HR MAGGI Administration Sodium Chloride 1,000 mls @ 125 mls/hr 11/16/24 22:25 11/18/24 08:50 Normal Saline Iv IV CONT Infused .Q8H [facility]GI Infusion Dextrose 1,000 mls @ 100 mls/hr 11/17/24 04:16 Dextrose 5% 1,000 Ml IVPB PRN PRN Hypoglycemia Protocol Insulin Aspart 3 - 6 units 11/17/24 17:05 11/18/24 08:40 Insulin Aspart (*Bkc) 100 Units/Ml SUB-Q Not Given ACHS MAGGI Protocol Lamotrigine 50 mg 11/17/24 09:00 11/18/24 08:39 Lamotrigine 50 Mg Tablet PO 50 mg Q12HR MAGGI Administration Levetiracetam 1,000 mg 11/17/24 09:00 11/18/24 08:39 Levetiracetam 500 Mg Tablet PO 1,000 mg Q12HR MAGGI Administration Lisinopril 20 mg 11/17/24 09:00 11/18/24 08:39 Lisinopril 20 Mg Tablet PO 20 mg DAILY MAGGI Administration Morphine Sulfate 2 mg 11/16/24 22:22 11/17/24 00:01 Morphine Sulfate (*Crx) 2 Mg/Ml Inj IV PUSH 2 mg Q2H PRN Administration Pain Rated 7-10 Ondansetron HCl 4 mg 11/16/24 22:22 11/17/24 00:01 Ondansetron Inj 4 Mg/2 Ml Vial IV PUSH 4 mg Q4H PRN Administration Nausea Promethazine HCl 25 mg 11/17/24 00:33 11/17/24 00:42 Promethazine Hcl 25 Mg/Ml Ampul IM 25 mg Q4H PRN Administration Intractable nausea vomiting Trazodone HCl 50 mg 11/17/24 21:00 11/17/24 20:27 Trazodone Hcl 50 Mg Tablet PO 50 mg HS MAGGI Administration Radiology Results: ITS Impressions Abdomen/Pelvis CT 11/16/24 20:31 IMPRESSION: Mild intrahepatic bile duct dilation, presumably related to cholecystectomy. No common bile duct dilation or obstructing stone or mass. Correlate with biliary labs. 3.7 cm right adrenal mass, with multiple additional smaller bilateral adrenal nodules. 1 cm indeterminate density left upper pole renal lesion. Multiple subcentimeter pancreatic cysts. Recommend comparison to outside studies if available to evaluate all of these lesions for stability. Otherwise, recommend nonemergent but timely multiphasic CT or MR without and with contrast. Distal descending colonic and sigmoid colon wall edema as can be seen with infectious, inflammatory, or ischemic colitis. Mild compression deformity at T11, presumed chronic unless accompanied by acute pain/tenderness. Labs Labs: Laboratory Results - last 24 hr 11/17/24 11/17/24 11/17/24 11:31 17:01 21:41 WBC RBC Hgb Hct MCV MCH MCHC RDW Plt Count MPV Sodium Potassium Chloride Carbon Dioxide Anion Gap BUN Creatinine Estim Creat Clear Calc Estimated GFR Glucose POC Capillary Glucose 147 H 128 H 136 H Calcium 11/18/24 11/18/24 05:04 07:35 WBC 10.1 H RBC 3.48 L Hgb 10.7 L Hct 33.1 L MCV 95.1 MCH 30.7 MCHC 32.3 RDW 13.4 Plt Count 258 MPV 9.4 Sodium 139 Potassium 3.6 Chloride 111 H Carbon Dioxide 22 Anion Gap 6 BUN 11 Creatinine 1.06 H Estim Creat Clear Calc 34 Estimated GFR 50 L Glucose 115 H POC Capillary Glucose 108 H Calcium 8.7
--- NOTE | 2024-11-18 10:12 | P.DS_ITS ---
DS: Admitting Diagnosis Discharge Date 11/18/2024 Admitting Diagnosis Colitis DS: Discharge Diagnosis Discharge Diagnosis (1) Colitis: Code(s): K52.9 - Noninfective gastroenteritis and colitis, unspecified Status: Acute (2) Dehydration: Code(s): E86.0 - Dehydration Status: Acute (3) Elevated lactic acid level: Code(s): R79.89 - Other specified abnormal findings of blood chemistry Status: Acute (4) Type 2 diabetes mellitus with hyperglycemia, without long-term current use of insulin: Code(s): E11.65 - Type 2 diabetes mellitus with hyperglycemia Status: Acute (5) Absence seizure disorder: Qualifiers: Intractability: not intractable Status epilepticus: without status epilepticus Qualified Code(s): G40.A09 - Absence epileptic syndrome, not intractable, without status epilepticus Code(s): G40.A09 - Absence epileptic syndrome, not intractable, without status epilepticus Status: Acute (6) Essential hypertension: Code(s): I10 - Essential (primary) hypertension Status: Acute DS: Summary Hospital Course Reason for hospitalization: nausea/vomiting/abdominal pain Hospital Course: 79-year-old female with a past medical history of seizure disorder, essential hypertension, irritable bowel syndrome, type 2 diabetes, depression and prior cholecystectomy and hysterectomy who presented to the ER with nausea vomiting and abdominal pain. The patient reports that she has chronic constipation and usually only has a bowel movement every 3 days. She felt uncomfortable enough that she decided to take a Dulcolax tablet this morning. After taking the Dulcolax tablets she had an initial hard bowel movement followed by 2 softer/loose bowel movements after she had the bowel movement she then started having nausea and vomiting. She reports that she had had a banana not muffin just prior to onset of symptoms. When she had emesis it was brown but non bloody. Patient reports the pain is more in the lower abdomen and mild. Her biggest complaint at the time of my evaluation is persistent nausea. She was afebrile in the ER but was complaining of chills and episodes of diaphoresis that occurred when she is having abdominal discomfort and nausea. She denies any recent ill contacts. Her son ate the same food that she did and has not been ill. She has not had any recent travel. She denies history of inflammatory bowel disease. She has been having normal urine output. She does have stress urinary incontinence but this is unchanged from baseline. She denies any dysuria or hematuria. She has not had any hematochezia or melena. She has noticed a small amount of blood on the toilet paper after wiping but this is not unusual given her history of hemorrhoids. Patient gave permission for me to discuss her medical care with her son, Jayro, who is at bedside. Source of information comes from the patient who is a relatively good historian, ER physician report and external medications report from pharmacy. The patient has never been evaluated at this facility previously. Abdomen/pelvis CT scan showed mild intrahepatic bile duct dilation, presumably related to cholecystectomy. No CBD dilation or obstructing stone/mass. It also showed a 3.7 cm right adrenal mass with multiple additional smaller bilateral adrenal nodules recommend following up with her PCP regarding followup multiphasic CT or MRI with/without contrast. General surgery was consulted regarding colitis. Agreed that no evidence of bowel obstruction. Lactic acid and WBC downtrending. At time of examination, no abdominal pain, vomiting/nausea with a benign physical exam. Recommended advancing diet as tolerated continuing antibiotics while inpatient and monitoring serial labs and exams. Symptoms likely attributed to colitis. On 11/18, patient once again endorsed significant improvement of symptoms, with a benign physical exam and stable blood work. Patient otherwise stable for discharge with outpatient follow-up. She will be instructed to follow-up with her PCP regarding her CT scan findings and possible colonoscopy in the next few weeks. Patient amenable to this plan and stable for discharge home. Status at Discharge Functional status at discharge: independent ambulation Overall status at discharge: patient is back to baseline Time Spent with Patient Time attestation: Total time spent providing and/or coordinating discharge services: 35 Exam Narrative: Weight 72.5 kg BMI 26.6 Const: Other: Well-developed, well-nourished, mildly ill-appearing HENMT: Other: Moist mucus membranes, no oral pharyngeal erythema, good dentition Eyes: Other: Pupils are equal and reactive, bilateral lens implants noted, no conjunctival pallor, no scleral icterus Neck: Other: No lymphadenopathy, no thyromegaly Resp: Other: Clear to auscultation bilaterally, no increased work of breathing Cardio: Other: Regular rate, regular rhythm, no murmur, 2+ bilateral radial pedal pulses, no JVD GI: Other: Soft, nontender, nondistended, positive bowel sounds Skin: Other: Generalized pallor, non jaundice Neuro: Other: Alert oriented x4, speech is clear, no facial asymmetry, no localizing neurologic deficits noted Extrem: Other: No clubbing, no cyanosis, no edema in lower extremities Psych: Other: Anxious, pleasant, cooperative, appropriate judgment and insight DS: Data Data Completed and Pending Labs on day of discharge: Labs from last 24 hours 11/18/24 11/18/24 11/17/24 07:35 05:04 21:41 WBC 10.1 H RBC 3.48 L Hgb 10.7 L Hct 33.1 L MCV 95.1 MCH 30.7 MCHC 32.3 RDW 13.4 Plt Count 258 MPV 9.4 Sodium 139 Potassium 3.6 Chloride 111 H Carbon Dioxide 22 Anion Gap 6 BUN 11 Creatinine 1.06 H Estim Creat Clear Calc 34 Estimated GFR 50 L Glucose 115 H POC Capillary Glucose 108 H 136 H Calcium 8.7 11/17/24 11/17/24 17:01 11:31 WBC RBC Hgb Hct MCV MCH MCHC RDW Plt Count MPV Sodium Potassium Chloride Carbon Dioxide Anion Gap BUN Creatinine Estim Creat Clear Calc Estimated GFR Glucose POC Capillary Glucose 128 H 147 H Calcium Preliminary micro results at discharge 11/17/24 00:07 Blood Culture - Preliminary Blood 11/17/24 00:07 Blood Culture - Preliminary Blood Imaging Radiologist's impression: CT abdomen pelvis w con Mild intrahepatic bile duct dilation, presumably related to cholecystectomy. No common bile duct dilation or obstructing stone or mass. Correlate with biliary labs. 3.7 cm right adrenal mass, with multiple additional smaller bilateral adrenal nodules. 1 cm indeterminate density left upper pole renal lesion. Multiple subcentimeter pancreatic cysts. Recommend comparison to outside studies if available to evaluate all of these lesions for stability. Otherwise, recommend nonemergent but timely multiphasic CT or MR without and with contrast. Distal descending colonic and sigmoid colon wall edema as can be seen with infectious, inflammatory, or ischemic colitis. Mild compression deformity at T11, presumed chronic unless accompanied by acute pain/tenderness. Discharge Plan Discharge Attending physician on discharge: Amy Sparks Consulting providers: Prince Deras; Shellie Garay Discharging Clinician: Prince Deras Anticipated Discharge Date/Time: 11/18/24 09:58 Patient Disposition: Home Activity: as tolerated Diet: as tolerated Discharge Instructions: Discharge disposition: Stable Take medications as prescribed Monitor blood pressures Take caution while standing, rising, or moving Change positions slowly taking a break between each position change If you standing feel dizzy sit back down and take a break Encouraged to continue with yearly vaccinations Return to the emergency department if he developed sudden shortness of breath, chest pain, nausea, vomiting, upset stomach or intractable diarrhea Return to the emergency department if you develop fever greater than 101.5 Follow-up with the primary care physician within 1-2 weeks Follow up with General Surgery regarding an outpatient colonoscopy in the next few weeks. Thank you for [facility] for your healthcare needs Patient Instructions: Antibiotic Form Patient Language: Senegalese Stand Alone Forms: General Discharge Information Follow-up/Referrals: PHYSICIAN NOT ON STAFF,NONSTAFF [Primary Care Provider] - Shellie Garay MD [Physician] - Discharge Medications: Continued amlodipine 5 mg tablet 5 mg PO DAILY trazodone 50 mg tablet 50 mg PO HS levetiracetam 500 mg tablet 1,000 mg PO Q12H lisinopril 20 mg tablet 20 mg PO DAILY lamotrigine 25 mg tablet 50 mg PO Q12H glimepiride 4 mg tablet 4 mg PO QAM fluoxetine 20 mg capsule 20 mg PO QPM rosuvastatin 10 mg tablet 10 mg PO HS Ozempic 0.25 mg or 0.5 mg (2 mg/3 mL) pen injector 0.5 mg SUBCUT WEEKLY Date of admission: 11/17/24 11:12 Primary Care Provider: PHYSICIAN NOT ON STAFF,NONSTAFF Admitting Provider: Radha Lemus Attending physician on admission: Radha Lemus Condition: Stable Quality VTE Prophylaxis VTE prophylaxis: pharmacologic ordered (Lovenox 30 mg subQ daily.)
[2024-11-18 12:07] LABS: Glucose Point of Care 131 mg/dl (65-105)
== END 2024-11-18 12:56 | disposition home or self-care (01) | DRG 392 ==
LOC: ANHED 22:22 → ANH2MED 23:09
PROVIDERS: Emergency Medicine; Admitting Provider Internal Medicine; Emergency Provider Physician Assistant; Visit Provider Physician Assistant
DX: K52.9 Noninfective gastroenteritis and colitis, unspecified (principal); E86.0 Dehydration; I10 Essential (primary) hypertension; E78.5 Hyperlipidemia, unspecified; E11.9 Type 2 diabetes mellitus without complications; K59.09 Other constipation; K42.9 Umbilical hernia without obstruction or gangrene; G40.A09 Absence epileptic syndrome, not intractable, without status epilepticus; G47.33 Obstructive sleep apnea (adult) (pediatric); F32.A Depression, unspecified
CPT/HCPCS: 36415; 74177; 80048; 80053; 81001; 82010; 82948; 83605; 83690; 85025; 85027; 85610; 85730; 87040; 87086; 87637; 96361; 96374; 96375; 99285; A9270; G0378; J1650; J2270; J2405; J2543; J2550; J2765; J7030; J7120; Q9967